=== PATIENT | female | born 1995 | race Two or more races ===

== ENCOUNTER 2023-03-12 22:49 | Emergency (ER) | payer SELFPAY ==
[~2023-03-12] VITALS: Ht 165.1 cm; Wt 51.3 kg
[2023-03-12] MEDS ORDERED: ONDANSETRON 4 MG/2 ML VIAL IV ONE (23:15)
[2023-03-12] MEDS ORDERED: IV NORMAL SALINE 1000 ML BAG IV ONE (23:15)
[2023-03-12 23:25] LABS: BASOPHILS # (AUTO) 0.1 K/UL (0.0-0.2); BASOPHILS % (AUTO) 1.8 % (0.0-2.0); EOSINOPHILS % (AUTO) 1.1 % (0.0-7.0); HEMATOCRIT 33.7 % (31.2-41.9); LYMPHOCYTES # (AUTO) 0.7 K/uL (0.8-4.8); LYMPHOCYTES % (AUTO) 23.1 % (20.5-51.5); MEAN CORPUSCULAR HEMOGLOBIN 28.6 uug (24.7-32.8); MEAN CORPUSCULAR HGB CONC 33 g/dL (32.3-35.6); MONOCYTES # (AUTO) 0.6 K/uL (0.1-1.30); MONOCYTES % (AUTO) 18.1 % (0.0-11.0); NEUTROPHILS # (AUTO) 1.7 K/uL (1.8-8.9); NEUTROPHILS % (AUTO) 55.9 % (38.5-71.5); PLATELET COUNT (AUTO) 182 K/uL (179-408); RED BLOOD CELL COUNT(AUTO) 3.83 MIL/uL (3.63-4.92); RED CELL DISTRIBUTION WIDTH 15.9 % (12.3-17.7); WHITE BLOOD COUNT (AUTO) 3.1 K/uL (3.8-11.8)
[2023-03-12 23:27] LABS: DIFFERENTIAL COMMENT 1
[2023-03-12 23:32] LABS: BAND % (MANUAL) 2 % (0-10); EOSINOPHILS % (MANUAL) 2 % (0-8); MONOCYTES % (MANUAL) 14 % (2-10)
[2023-03-12 23:33] LABS: BASOPHILS % (MANUAL) 1 % (0-2); LYMPHOCYTES % (MANUAL) 31 % (20-40)
[2023-03-12 23:34] LABS: CALCIUM 7.6 mg/dL (8.5-10.1); CARBON DIOXIDE 23 mmol/L (21-32); CHLORIDE 108 mmol/L (98-107); CREATININE 0.6 mg/dL (0.6-1.3); GLUCOSE 111 mg/dL (74-106); POTASSIUM 3.5 mmol/L (3.5-5.1); SODIUM SERUM 146 mmol/L (136-145); UREA NITROGEN, BLOOD 5 mg/dL (7-18)
[2023-03-12 23:35] LABS: NEUTROPHILS % (MANUAL) 50 % (42-75)
[2023-03-12 23:36] LABS: PLATELET ESTIMATE ADEQUATE
[2023-03-12] MEDS ORDERED: ONDANSETRON 4 MG/2 ML VIAL ONE (23:41)
[2023-03-12 23:43] LABS: ALANINE AMINOTRANSFERASE 52 U/L (14-59); ALBUMIN 3.7 g/dL (3.4-5.0); ALKALINE PHOSPHATASE 54 U/L (50-136); ASPARTATE AMINOTRANSFERASE 83 U/L (15-37); BILIRUBIN,DIRECT 0.2 mg/dL (0.0-0.2); BILIRUBIN,TOTAL 0.3 mg/dL (0.2-1.0); TOTAL PROTEIN, SERUM 7.4 g/dL (6.4-8.2)
[2023-03-12 23:46] LABS: ETHANOL 425 MG/DL (0-10)
[2023-03-12 23:55] LABS: PREGNANCY TEST SERUM QUAN < 1 miul/L (0-6)
[2023-03-13 01:39] VITALS: BP 142/80; TEMP 98.1; O2SAT 98
== END 2023-03-13 01:30 | disposition home or self-care (01) ==
LOC: EDBD 22:49 → ER 22:49
DX: F10.129 Alcohol abuse with intoxication, unspecified (principal); R55 Syncope and collapse; R10.2 Pelvic and perineal pain; Y90.8 Blood alcohol level of 240 mg/100 ml or more
CPT/HCPCS: 36415; 70030-TC; 84484; 85025; 93005; A4663; G0480; J2405; J7040